=== PATIENT | female | born 2000 | race Hispanic/Latino ===

== ENCOUNTER 2023-05-25 18:19 | Inpatient (IN) | payer OTHER ==
[2023-05-25 19:04] VITALS: BMI 34.5
[2023-05-25 19:44] LABS: Fetal Membranes Rupture No Membranes Rupture (No Rupture)
[2023-05-25] MEDS ORDERED: Misoprostol 200 MCG TAB PR PRN (20:54)
[2023-05-25] MEDS ORDERED: Methylergonovine 0.2 MG/ML VIAL IM PRN (20:54)
[2023-05-25] MEDS ORDERED: hydrALAZINE 20 MG/ML VIAL SLOW IVP PRN (20:54)
[2023-05-25] MEDS ORDERED: HYDROcodone/Acetaminophen 5/325 mg Tablet PO PRN (20:54)
[2023-05-25] MEDS ORDERED: Carboprost 250 MCG/ML AMP IM PRN (20:54)
[2023-05-25] MEDS ORDERED: Tranexamic Acid 1,000 MG/10 ML VIAL IVP PRN (20:54)
[2023-05-25] MEDS ORDERED: Diphenoxylate HCl/Atropine Tablet PO PRN (20:54)
[2023-05-25] MEDS ORDERED: fentaNYL 50 mcg/mL 1 mL Vial SLOW IVP PRN (20:54)
[2023-05-25] MEDS ORDERED: Ibuprofen 800 MG TAB PO PRN (20:54)
[2023-05-25] MEDS ORDERED: Acetaminophen 500 MG TAB PO PRN (20:54)
[2023-05-25] MEDS ORDERED: Lidocaine 1% (PF) 30 ML VIAL SC PRN (20:54)
[2023-05-25] MEDS ORDERED: Promethazine HCl 25 MG/ML VIAL IM PRN (20:54)
[2023-05-25] MEDS ORDERED: Ondansetron PF 4 MG/2 ML Vial IVP PRN (20:54)
[2023-05-25] MEDS ORDERED: NS w/ Oxytocin 30 units 500 ML IV SCH ×3 (21:00)
[2023-05-25] MEDS: Lactated Ringer's 1,000 ML IV SCH (21:30)
[2023-05-25 22:05] LABS: Hemoglobin 9.6 g/dL (12.0-15.5); Mean Corpuscular Hemoglobin 23.1 pg (27.0-33.0); Mean Corpuscular Volume 72.3 fl (81.6-98.3); Mean Platelet Volume 9.6 fl (7.4-10.4); Platelet Count 318 10x3/uL (150-450); RBC Distribution Width 13.6 % (11.5-14.5); Red Blood Cell (RBC) Count 4.15 10x6/uL (3.90-5.03); White Blood Cell (WBC) Count 9.6 10x3/uL (3.5-10.5)
[2023-05-25 22:39] LABS: HBSAg Index 0.16 S/CO (0-0.99); Hep B Surf Ag - L&D Non-Reactive S/CO (NonReactive)
[2023-05-25 22:45] LABS: Syphilis Antibody Nonreactive (Nonreactive); Syphilis Antibody Index 0.09 S/CO (<1.00 Non-Reactive)
[2023-05-26] MEDS ORDERED: fentaNYL/Ropivacaine Epidural 100 ML ONE (02:01)
[2023-05-26] MEDS ORDERED: Milk Of Magnesia 30 ML UDCUP PO PRN (06:01)
[2023-05-26] MEDS ORDERED: Lanolin Ointment 7 GM TUBE TOP PRN (06:01)
[2023-05-26] MEDS ORDERED: Ondansetron PF 4 MG/2 ML Vial IVP PRN (06:01)
[2023-05-26] MEDS ORDERED: Benzocaine-Menthol 82.5 ML CAN TOP PRN (06:01)
[2023-05-26] MEDS ORDERED: diphenhydrAMINE 25 MG CAP PO PRN (06:01)
[2023-05-26] MEDS ORDERED: Boostrix 0.5 ML (Tdap) VIAL (>/=7 yrs of age) IM ONE (06:01)
[2023-05-26] MEDS ORDERED: hydrALAZINE 20 MG/ML VIAL SLOW IVP PRN (06:01)
[2023-05-26] MEDS ORDERED: Promethazine HCl 25 MG/ML VIAL IM PRN (06:01)
[2023-05-26] MEDS ORDERED: Bisacodyl 10 MG SUPP PR PRN (06:01)
[2023-05-26] MEDS: Lactated Ringer's 1,000 ML IV SCH (06:07)
[2023-05-26] MEDS: Ibuprofen 800 MG TAB PO SCH ×3 (06:11→21:42)
[2023-05-26] MEDS: Docusate 100 MG CAP PO SCH ×2 (09:24→21:42)
[2023-05-26] MEDS: Prenatal Vitamin 1 TAB PO SCH (09:24)
[2023-05-26] MEDS: Ferrous Sulfate 325 MG TAB PO SCH ×2 (09:24→18:42)
[2023-05-26] MEDS: HYDROcodone/Acetaminophen 5/325 mg Tablet PO PRN ×3 (09:24→18:19)
[2023-05-27] MEDS: Ibuprofen 800 MG TAB PO SCH (06:06)
[2023-05-27 08:09] VITALS: BP 114/66; TEMP 97.9
[2023-05-27] MEDS: HYDROcodone/Acetaminophen 5/325 mg Tablet PO PRN (08:26)
[2023-05-27] MEDS: Prenatal Vitamin 1 TAB PO SCH (08:27)
[2023-05-27] MEDS: Ferrous Sulfate 325 MG TAB PO SCH (08:27)
[2023-05-27] MEDS: Docusate 100 MG CAP PO SCH (08:27)
== END 2023-05-27 15:15 | disposition home or self-care (01) | DRG 807 ==
LOC: CSHLD/OP 18:19 → CSHLD 21:57 → CSHPP 05-26 05:43
PROVIDERS: ADMIT Family Medicine; ATTEND Family Medicine
PROC: 10E0XZZ Delivery of Products of Conception, External Approach (ICD-10-PCS; principal; 2023-05-26)
PROC: 10907ZC Drainage of Amniotic Fluid, Therapeutic from Products of Conception, Via Natural or Artificial Opening (ICD-10-PCS; 2023-05-26)
DX: O80 Encounter for full-term uncomplicated delivery (principal); Z37.0 Single live birth; Z3A.38 38 weeks gestation of pregnancy; Z79.899 Other long term (current) drug therapy
CPT/HCPCS: 36415; 51702; 84112; 85027; 86780; 86850; 86900; 86901; 87340; 99285; J2405; J2590; J3010; J7120